=== PATIENT | female | born 1940 | race Caucasian/White ===

== ENCOUNTER 2020-01-02 15:58 | Inpatient (IN) | payer MEDICARE, BC ==
[~2020-01-02] VITALS: Ht 154.9 cm; Wt 85.6 kg
[2020-01-02] VITALS (16 sets, daily range): BP systolic 94–135; BP diastolic 38–64
[2020-01-02 16:31] LABS: BASOPHILS 0.1 % (0-2); EOSINOPHILS 0 % (0-7); HEMATOCRIT 28.4 % (36.0-48.0); HEMOGLOBIN 8.8 g/dL (12-16); IMMATURE GRANULOCYTES 1.7 % (0-5); LYMPHOCYTES 3.6 % (15-50); MCH 30.9 pg (26.0-34.0); MCV 99.6 fL (80.0-100.0); MONOCYTES 4.1 % (2-11); NEUTROPHILS 90.5 % (40-80); PLATELET COUNT 360 10x3/uL (130-400); RBC 2.85 10x6/uL (4.00-5.40); RDW 14.2 % (11.5-14.5); WBC 17.4 10x3/uL (4.8-10.8)
[2020-01-02 16:39] LABS: INR 2.27 (0.85-1.17); PROTIME 24.7 SECONDS (11.6-15.0)
--- NOTE | 2020-01-02 16:40 | NUR ---
PT ARRIVED WITH LEVOPHED DRIP INFUSING, CURRENT BAG NEAR EMPTY AND NEW BAG STARTED TO TITRATE. PT CONVERTED FROM FLIGHT NRB MASK TO BPAP BY RT AT BEDSIDE. PASCUAL CATHETER IN PLACE FROM [facility]
[2020-01-02 16:44] LABS: ANION GAP 12.9 mmol/L (8-16); CALCIUM 7.2 mg/dL (8.5-10.1); CARBON DIOXIDE 23.6 mmol/L (21.0-32.0); CREATININE - SERUM 1.9 mg/dL (0.6-1.3); POTASSIUM - SERUM 4.5 mmol/L (3.5-5.1)
[2020-01-02 16:58] LABS: D-DIMER-QUANTITATIVE 3.9 ug/mLFEU (0.20-0.54)
[2020-01-02 17:01] LABS: ALBUMIN 1.8 g/dL (3.4-5.0); BILIRUBIN - TOTAL 1.66 mg/dL (0.2-1.3); PROTEIN - SERUM 6.6 g/dL (6.4-8.2)
[2020-01-02 17:02] LABS: C-REACTIVE PROTEIN 19.7 mg/dL (0.0-0.9)
[2020-01-02 17:27] LABS: ERYTHROCYTE SEDIMENTATION RATE 94 mm/hr (0-30)
--- NOTE | 2020-01-02 22:10 | NUR ---
PT ARRIVED VIA STREATHER IN STABLE CONDITION. PLACED ON BIPAP IMMEDIATELY FROM NON-REBREATHER AT 60%. VSS. LEVOPHED IS GOING AT 18MCG/MIN, NS AT 30ML/HR IN RIGHT UPPER ARM THAT IS CDI. PT IS ALERT BUT TIRES EASILY WHEN ASKED QUESTIONS. I WILL PERFORM FULL ASSESSMENT AND HISTORY AND DOC IN FLOWSHEET. ORIENTED TO CALL LIGHT. BED IS LOW,SIDE RIASLX2.
[2020-01-03] VITALS (54 sets, daily range): BP systolic 103–137; BP diastolic 40–89; BMI 30.4
--- NOTE | 2020-01-03 01:05 | NUR ---
PT SEEN PULLING BIPAP OFF. ASSISSTED PT WHILE OBSERVING ISOLATION. SHE VOICED"MY MOUTH IS SO DRY". I ASSISTED WITH GLYCERIN LEMON GLICERIN SWAB TO MOISTON MOUTH AND REAPPLIED BIPAP. VSS. LISTED HOB PER REQUEST FOR COMFORT. PT BP IS SLOWLY COMING UP, TRYING TO LOWER DOSE OF LEVOPHED ORDERED. BED IS LEFT LOW,SIDE RAISLX2,CALL LIGHT WITHIN REACH. WILL CONTINUE TO MONITOR
[2020-01-03 04:36] LABS: BASOPHILS 0 % (0-2); EOSINOPHILS 0.1 % (0-7); IMMATURE GRANULOCYTES 1.9 % (0-5); LYMPHOCYTES 4.2 % (15-50); MCH 30.9 pg (26.0-34.0); MCHC 31.5 g/dL (31.0-37.0); MEAN PLATELET VOLUME 9.7 fL (7.4-10.4); NEUTROPHILS 91.8 % (40-80); RDW 14.6 % (11.5-14.5); WBC 13.3 10x3/uL (4.8-10.8)
[2020-01-03 04:40] LABS: HEMOGLOBIN 12.6 g/dL (12-16); PLATELET COUNT 237 10x3/uL (130-400); RBC 4.08 10x6/uL (4.00-5.40)
[2020-01-03 04:58] LABS: APTT 43.8 SECONDS (22.8-39.4); INR 3.07 (0.85-1.17); PROTIME 31.2 SECONDS (11.6-15.0)
[2020-01-03 05:27] LABS: % SATURATION 7 % (15-55); IRON 10 ug/dl (35-150); TOTAL IRON BIND CAPACITY 133 ug/dl (260-445); UNSAT IRON BIND CAPACITY 123 ug/dl (150-375)
[2020-01-03 05:31] LABS: ALBUMIN 1.7 g/dL (3.4-5.0); ANION GAP 15.8 mmol/L (8-16); BILIRUBIN - TOTAL 2.48 mg/dL (0.2-1.3); CALCIUM 7.1 mg/dL (8.5-10.1); CARBON DIOXIDE 24.3 mmol/L (21.0-32.0); CREATININE - SERUM 2.1 mg/dL (0.6-1.3); MAGNESIUM - SERUM 1.7 mg/dL (1.8-2.4); PHOSPHOROUS 4.2 mg/dL (2.5-4.9); POTASSIUM - SERUM 4.1 mmol/L (3.5-5.1); PROTEIN - SERUM 6.3 g/dL (6.4-8.2)
--- NOTE | 2020-01-03 06:00 | NUR ---
BS RECHECK IS 124 AT THIS TIME. PT IS ALERT AND VSS.
[2020-01-03 17:49] LABS: BACTERIA MANY HPF (NONE SEEN); BILIRUBIN NEGATIVE (NEGATIVE); EPITHELIAL CELLS 0-5 /hpf (0-5); KETONE NEGATIVE (NEGATIVE); NITRITE NEGATIVE (NEGATIVE); UROBILINOGEN NORMAL mg/dL (< 2); WHITE CELLS - URINE 0-5 HPF (0-4)
--- NOTE | 2020-01-03 19:00 | NUR ---
PT RESTING IN BED, NO ACUTE DISTRESS NOTED. 12L HFNC. RT UPPER ARM, RT FOREARM, LT FOREARM PIV INFUSING, SEE IV FLOWSHEET. ASSESSMENT COMPLETED, SEE FLOWSHEET.
--- NOTE | 2020-01-03 21:00 | NUR ---
PT OBSERVED HAVING DIFFICULTY WHEN TAKING SIPS OF WATER.
[2020-01-04] VITALS (24 sets, daily range): BP systolic 94–132; BP diastolic 34–69; BMI 22.6
[2020-01-04 04:38] LABS: BASOPHILS 0.1 % (0-2); EOSINOPHILS 0.1 % (0-7); IMMATURE GRANULOCYTES 0.7 % (0-5); LYMPHOCYTES 5.9 % (15-50); MCH 30.4 pg (26.0-34.0); MCHC 30.7 g/dL (31.0-37.0); MCV 99.2 fL (80.0-100.0); MEAN PLATELET VOLUME 9.6 fL (7.4-10.4); MONOCYTES 3.2 % (2-11); PLATELET COUNT 275 10x3/uL (130-400)
[2020-01-04 05:16] LABS: ALBUMIN 1.9 g/dL (3.4-5.0); ANION GAP 12.3 mmol/L (8-16); BILIRUBIN - TOTAL 2.68 mg/dL (0.2-1.3); CALCIUM 7.1 mg/dL (8.5-10.1); CARBON DIOXIDE 27.9 mmol/L (21.0-32.0); CREATININE - SERUM 2.5 mg/dL (0.6-1.3); MAGNESIUM - SERUM 1.8 mg/dL (1.8-2.4); POTASSIUM - SERUM 4.2 mmol/L (3.5-5.1); PROTEIN - SERUM 6.1 g/dL (6.4-8.2); VANCOMYCIN - RANDOM 12.4 ug/mL (10.0-20.0)
[2020-01-04 05:46] LABS: HEMATOCRIT 25.1 % (36.0-48.0); HEMOGLOBIN 7.7 g/dL (12-16); RBC 2.53 10x6/uL (4.00-5.40); WBC 19.7 10x3/uL (4.8-10.8)
--- NOTE | 2020-01-04 11:21 | NUR ---
PT O2 SATS WERE STAYING AROUND 82-86% ON 11LHF. PLACED PT ON BIPAP AT 60%. O2 SAT NOW UP TO 97%. WILL CONTINUE TO MONITOR.
--- NOTE | 2020-01-04 13:51 | NUR ---
SPOKE WITH DR FRANCE REGARDING PT'S VQ SCAN. PT UNABLE TO COME OFF OF BIPAP. CONCERN WITH TUBING REACHING MACHINE. SAID WE COULD WAIT AND TRY TO GET SCAN TOMORROW, TO KEEP PT IN ICU. WILL LET RADIOLOGY AND RESPIRATORY THERAPIST.
--- NOTE | 2020-01-04 14:40 | NUR ---
PT CONTINUES TO PULL BIPAP OFF HER FACE. EXPLAINED THAT SHE NEEDED IT ON TO MAINTAIN HER O2 SATS. PT FORGETFUL AND CONFUSED. ATTEMPTED TO REORIENT TO KEEP MASK ON.
[2020-01-04 17:23] LABS: BASOPHILS 0.1 % (0-2); EOSINOPHILS 0 % (0-7); HEMATOCRIT 24.8 % (36.0-48.0); HEMOGLOBIN 7.7 g/dL (12-16); IMMATURE GRANULOCYTES 0.6 % (0-5); LYMPHOCYTES 2.6 % (15-50); MCH 30.8 pg (26.0-34.0); MCV 99.2 fL (80.0-100.0); MEAN PLATELET VOLUME 9.7 fL (7.4-10.4); MONOCYTES 4.3 % (2-11); NEUTROPHILS 92.4 % (40-80); PLATELET COUNT 248 10x3/uL (130-400); RDW 14.9 % (11.5-14.5); WBC 18.6 10x3/uL (4.8-10.8)
[2020-01-04 17:40] LABS: ANION GAP 13.4 mmol/L (8-16); CARBON DIOXIDE 24.7 mmol/L (21.0-32.0); CREATININE - SERUM 2.7 mg/dL (0.6-1.3); POTASSIUM - SERUM 4.1 mmol/L (3.5-5.1)
[2020-01-04 17:43] LABS: CALCIUM 6.9 mg/dL (8.5-10.1)
--- NOTE | 2020-01-04 22:38 | NUR ---
PAGED DR FRANCE REGARDING ABG'S, NEW ORDERS FOR INTUBATION RECEIVED. ANESTHESIA PAGED.
--- NOTE | 2020-01-04 23:45 | NUR ---
PT INTUBATED SUCCESSFULLY. 8.0 AT LIP LINE MID, 22CM. 400 TV, RR 20, PEEP 6.0, 100% FIO2
[2020-01-05] VITALS (83 sets, daily range): BP systolic 84–125; BP diastolic 42–61
[2020-01-05 06:33] LABS: ALBUMIN 1.7 g/dL (3.4-5.0); ANION GAP 16.3 mmol/L (8-16); BILIRUBIN - TOTAL 3.17 mg/dL (0.2-1.3); CARBON DIOXIDE 22.7 mmol/L (21.0-32.0); CREATININE - SERUM 3.1 mg/dL (0.6-1.3); PHOSPHOROUS 3.6 mg/dL (2.5-4.9); PROTEIN - SERUM 5.9 g/dL (6.4-8.2); VANCOMYCIN - RANDOM 16.8 ug/mL (10.0-20.0)
[2020-01-05 06:55] LABS: HEMOGLOBIN 7.7 g/dL (12-16); MCHC 30.8 g/dL (31.0-37.0); MCV 100.8 fL (80.0-100.0); MEAN PLATELET VOLUME 9.8 fL (7.4-10.4); PLATELET COUNT 227 10x3/uL (130-400); RBC 2.48 10x6/uL (4.00-5.40); RDW 15.5 % (11.5-14.5); WBC 23.8 10x3/uL (4.8-10.8)
[2020-01-05 08:40] LABS: LYMPHOCYTES 3 % (15-50); MONOCYTES 7 % (2-11); NEUTROPHILS 84 % (40-80); PLATELET ESTIMATE NORMAL
--- NOTE | 2020-01-05 11:22 | NUR ---
PATIENT AROUND TO NUCLEAR [facility] FOR VQ SCAN. PATIENTS SPO2 DECREASED TO 60'S WHEN PATIENT WAS MOVED OVER TO TABLE AND WAS FLAT. AFTER TRYING TO GET SPO2 UP WITHOUT SUCCESS PATIENT WAS MOVED BACK OVER TO BED AND HOB ELEVATED SPO2 INCREASED TO 99%.
--- NOTE | 2020-01-05 23:18 | MORECARE ---
CASE MANAGEMENT DISCHARGE SUMMARY PATIENT: MADELYN MC UNIT: [id number] ADM DATE: 01/02/20 AGE: 79 : 40 SEX: F ROOM/BED: D.2313 AUTHOR: PARTHA MCKEON PHYSICIAN: REFERRING PHYSICIAN: IRAIDA MONTOYA MD DATE OF SERVICE: 01/05/20 Discharge Plan Patient Name: MADELYN MC [facility] [facility] 1940 Planned Disposition: Anticipated Discharge Date: Discharge Date: Expected LOS: Initial Reviewer: [email or web address] Initial Review Date: 01/02/2020 Generated: 01/06/20 12:17 am Patient Name: MADELYN MC Page [phone] at 2318 All edits/amendments must be made on the electronic document DICTATION DATE: 01/05/202317 PLAY BACK OPERATOR: PRINCESS 01/05/202317 RPT#: [id number] DC DATE: STATUS: ADM IN [facility] [address] [place] [address] END OF REPORT
[2020-01-06] VITALS (66 sets, daily range): BP systolic 66–103; BP diastolic 43–56
[2020-01-06 06:18] LABS: BASOPHILS 0.2 % (0-2); EOSINOPHILS 0.1 % (0-7); HEMOGLOBIN 8.4 g/dL (12-16); IMMATURE GRANULOCYTES 3.1 % (0-5); LYMPHOCYTES 5.5 % (15-50); MCH 31.3 pg (26.0-34.0); MCHC 32.3 g/dL (31.0-37.0); MEAN PLATELET VOLUME 10.5 fL (7.4-10.4); MONOCYTES 3.2 % (2-11); NEUTROPHILS 87.9 % (40-80); RBC 2.68 10x6/uL (4.00-5.40); WBC 18.8 10x3/uL (4.8-10.8)
[2020-01-06 06:19] LABS: PLATELET COUNT 128 10x3/uL (130-400)
[2020-01-06 06:23] LABS: ALBUMIN 2.1 g/dL (3.4-5.0); ANION GAP 13.3 mmol/L (8-16); BILIRUBIN - TOTAL 5.13 mg/dL (0.2-1.3); CARBON DIOXIDE 23.8 mmol/L (21.0-32.0); CREATININE - SERUM 3.7 mg/dL (0.6-1.3); MAGNESIUM - SERUM 2.2 mg/dL (1.8-2.4); PHOSPHOROUS 3.7 mg/dL (2.5-4.9); POTASSIUM - SERUM 4.1 mmol/L (3.5-5.1); PROTEIN - SERUM 5.6 g/dL (6.4-8.2)
[2020-01-06 06:42] LABS: C-REACTIVE PROTEIN 25.7 mg/dL (0.0-0.9)
[2020-01-06 06:46] LABS: CALCIUM 6.9 mg/dL (8.5-10.1)
--- NOTE | 2020-01-06 07:00 | NUR ---
REC'D REPORT AND RESUMED CARE, ETT TO VENTILATION AND SECURED, 100% FIO2 WITH SAT OF 99%, RT AC PIV WITH FENT AT 100 MCG, AND LEVOPHED AT 3 MCG, LT FA WITH D5NS AT 100, PASCUAL TO GRAVITY WITH DARK DRAINAGE TO BAG, B/L RESTRAINTS IN USE, VSS, AROUSES TO VERBAL STIMULI, DOES NOT FOLLOW COMMANDS. ASSESSMENT COMPLETED PER FLOWSHEET, WILL CONTINUE WITH POC
--- NOTE | 2020-01-06 09:00 | NUR ---
PC TO [facility] RE UPDATE, SPOKEL WITH DR FRANCE HE HAS BEE UNABLE TO REACH [facility]
--- NOTE | 2020-01-06 10:10 | NUR ---
PRBC INITIATED AT 125 CC/HR, 1020 TV CHANGED TO [address] FRANCE ORDER
--- NOTE | 2020-01-06 11:31 | NUR ---
Nutrition follow-up: Pt now intubated, sedated Labs reviewed NPO Wt: 120# OGT->LIWS Recommend starting Pulmocare @ 20 ml/hr with increase to goal rate of 40 ml/hr gravity drip (8 drips/minute-2 drips/15 seconds) RDN following.
--- NOTE | 2020-01-06 12:30 | NUR ---
DR BIRCH AT BEDSIDE, NEW ORDERS GIVEN, LASIX 60 MG GIVEN PER ORDER
[2020-01-07] VITALS (52 sets, daily range): BP systolic 81–101; BP diastolic 41–63; Ht 154.9 cm; Wt 85.6 kg
[2020-01-07 05:06] LABS: INR 1.83 (0.85-1.17)
[2020-01-07 05:16] LABS: ALBUMIN 1.7 g/dL (3.4-5.0); ANION GAP 16.6 mmol/L (8-16); BILIRUBIN - TOTAL 6.71 mg/dL (0.2-1.3); CALCIUM 7.3 mg/dL (8.5-10.1); CARBON DIOXIDE 20.3 mmol/L (21.0-32.0); CREATININE - SERUM 4.3 mg/dL (0.6-1.3); PHOSPHOROUS 2.8 mg/dL (2.5-4.9); POTASSIUM - SERUM 3.9 mmol/L (3.5-5.1); PROTEIN - SERUM 5.9 g/dL (6.4-8.2); VANCOMYCIN - RANDOM 20.9 ug/mL (10.0-20.0)
[2020-01-07 05:36] LABS: BASOPHILS 0.1 % (0-2); EOSINOPHILS 0.4 % (0-7); HEMATOCRIT 29.5 % (36.0-48.0); HEMOGLOBIN 9.7 g/dL (12-16); IMMATURE GRANULOCYTES 0.6 % (0-5); LYMPHOCYTES 7.3 % (15-50); MCH 30.3 pg (26.0-34.0); MCHC 32.9 g/dL (31.0-37.0); MEAN PLATELET VOLUME 10.3 fL (7.4-10.4); MONOCYTES 5.3 % (2-11); NEUTROPHILS 86.3 % (40-80); RDW 16.6 % (11.5-14.5); WBC 15.6 10x3/uL (4.8-10.8)
[2020-01-07 05:47] LABS: MCV 92.2 fL (80.0-100.0); PLATELET COUNT 94 10x3/uL (130-400)
[2020-01-07 06:24] LABS: PLATELET ESTIMATE DECREASED
--- NOTE | 2020-01-07 09:37 | NUR ---
SPOKE WITH PT'S DAUGHTER OJ TO GET CONSENT FOR BRONCHOSCOPY. SHE, ALONG WITH HER SIBLINGS, ASKED IF WE COULD WAIT. THEY ARE MEETING WITH DR HERNANDEZ THIS MORNING AND THEN WILL CALL BACK AND LET US KNOW IF THEY WANT THEIR MOM TO HAVE BRONCH.
--- NOTE | 2020-01-07 10:52 | NUR ---
DR HERNANDEZ MET WITH FAMILY. PT TO BE DNR. FAMILY DID GIVE CONSENT TO DO BRONCHOSCOPY TODAY.
--- NOTE | 2020-01-07 11:21 | NUR ---
DR FRANCE DOING BRONCHOSCOPY.
[2020-01-08] VITALS (12 sets, daily range): BP systolic 90–103; BP diastolic 40–46
[2020-01-08 03:40] LABS: BASOPHILS 0.3 % (0-2); HEMATOCRIT 26.8 % (36.0-48.0); IMMATURE GRANULOCYTES 0.7 % (0-5); MCH 30.6 pg (26.0-34.0); MCHC 33.6 g/dL (31.0-37.0); MCV 91.2 fL (80.0-100.0); MEAN PLATELET VOLUME 10.9 fL (7.4-10.4); MONOCYTES 3.9 % (2-11); NEUTROPHILS 87.1 % (40-80); PLATELET COUNT 85 10x3/uL (130-400); RBC 2.94 10x6/uL (4.00-5.40); RDW 15.9 % (11.5-14.5); WBC 18.7 10x3/uL (4.8-10.8)
[2020-01-08 03:54] LABS: ALBUMIN 1.3 g/dL (3.4-5.0); ANION GAP 16.1 mmol/L (8-16); BILIRUBIN - TOTAL 7.55 mg/dL (0.2-1.3); CALCIUM 7.3 mg/dL (8.5-10.1); CARBON DIOXIDE 20.2 mmol/L (21.0-32.0); CREATININE - SERUM 5.2 mg/dL (0.6-1.3); MAGNESIUM - SERUM 2.1 mg/dL (1.8-2.4); PHOSPHOROUS 2.8 mg/dL (2.5-4.9); POTASSIUM - SERUM 4.3 mmol/L (3.5-5.1); PROTEIN - SERUM 5.6 g/dL (6.4-8.2); VANCOMYCIN - RANDOM 22.3 ug/mL (10.0-20.0)
--- NOTE | 2020-01-08 09:41 | NUR ---
Nutrition follow-up: Pt intubated NPO s/p bronchoscopy 01/06 Wt: 188#; wt yesterday was 120#? Recommend starting Pulmocare @ 20 ml/hr with increase to goal rate of 40 ml/hr 8 drips/minuted via gravity RDN following.
--- NOTE | 2020-01-08 12:17 | NUR ---
Dr. Carlisle spoke with family. Plan is to place pt on hospice.
--- NOTE | 2020-01-08 13:27 | NUR ---
10MG MORPHINE IV GIVEN PER ORDERS.
--- NOTE | 2020-01-08 14:46 | NUR ---
Pt extubated at 1405. Placed on 2L O2 via nc. Restraints discontinued. Asystole noted at 1421. Dr. Carlisle notified. Time of 1427. Family notified. Daughter came in to view body.
--- NOTE | 2020-01-08 15:52 | MORECARE ---
CASE MANAGEMENT DISCHARGE SUMMARY PATIENT: MADELYN MC UNIT: [id number] ADM DATE: 01/02/20 AGE: 79 : 40 SEX: F ROOM/BED: D.2305 AUTHOR: PARTHA MCKEON PHYSICIAN: REFERRING PHYSICIAN: IRAIDA MONTOYA MD DATE OF SERVICE: 01/08/20 Discharge Plan Patient Name: MADELYN MC [facility] [facility] 1940 Planned Disposition: Anticipated Discharge Date: Discharge Date: Expected LOS: Initial Reviewer: [email or web address] Initial Review Date: 01/02/2020 Generated: 01/08/20 4:51 pm Last DP export: 01/05/20 10:18 p Patient Name: MADELYN MC Page [id number] at 1552 All edits/amendments must be made on the electronic document DICTATION DATE: 01/08/20 155 [employer]OYEE BENEFITS DIRECTOR: PRINCESS 01/08/20 1551 RPT#: [id number] DC DATE: STATUS: ADM IN [facility] [address] [place] [address] END OF REPORT
--- NOTE | 2020-01-08 15:56 | NUR ---
[place] home here to olive picker body. Piv's discontinued, delarosa catheter dc'd. No personal belongings.
[2020-01-08 17:09] LABS: ACID FAST SMEAR Negative (()); AFB SPECIMEN PROCESSING Concentration (())
--- NOTE | 2020-01-08 20:35 | MORECARE ---
CASE MANAGEMENT DISCHARGE SUMMARY PATIENT: MADELYN MC UNIT: [id number] ADM DATE: 01/02/20 AGE: 79 : 40 SEX: F ROOM/BED: D.2305 AUTHOR: PARTHA MCKEON PHYSICIAN: REFERRING PHYSICIAN: IRAIDA MONTOYA MD DATE OF SERVICE: 01/08/20 Discharge Plan Patient Name: MADELYN MC Facility: [facility]:[place] : 1940 Planned Disposition: Anticipated Discharge Date: Discharge Date: 01/08/2020 Expected LOS: Initial Reviewer: [email or web address] Initial Review Date: 01/02/2020 Generated: 01/08/20 9:34 pm DCPIA - Discharge Planning Initial Assessment Updated by [id number]: Rosa Ibarra on 01/08/20 8:35 pm * Is the patient Alert and Oriented? No * How many steps to enter\exit or inside your home? * PCP [facility] Doming[facility] * Pharmacy [facility] * Preadmission Environment Home with Family * ADLs Partial Dependent * Partial ADLs (Assistance needed) Ambulation Bathing Dressing Eating Medication Management Toileting Transfers * Other Equipment W/C , WALKER * List name and contact numbers for known caregivers / representatives who currently or will assist patient after discharge: OJ MC - DAUGHTER - [phone] * Verbal permission to speak to the caregivers and representatives has been obtained from the patient. Yes * Community resources currently utilized None * Additional services required to return to the preadmission environment? No * Can the patient safely return to the preadmission environment? Yes * Has this patient been hospitalized within the prior 30 days at any hospital? No Last DP export: 01/08/20 2:52 p Patient Name: MADELYN MC Page [phone] at 2034 All edits/amendments must be made on the electronic document DICTATION DATE: 01/08/202033 INFORMATION OFFICER: PRINCESS 01/08/202033 RPT#: [id number] DC DATE:01/08/20 STATUS: DIS IN [facility] [address] [place] [address] END OF REPORT
--- NOTE | 2020-01-08 20:41 | MORECARE ---
CASE MANAGEMENT DISCHARGE SUMMARY PATIENT: MADELYN MC UNIT: [id number] ADM DATE: 01/02/20 AGE: 79 : 40 SEX: F ROOM/BED: D.2305 AUTHOR: MIKE,DOC PHYSICIAN: REFERRING PHYSICIAN: IRAIDA MONTOYA MD DATE OF SERVICE: 01/08/20 Discharge Plan Patient Name: MADELYN MC Facility: [facility]:[place] : 1940 Planned Disposition: Anticipated Discharge Date: Discharge Date: 01/08/2020 Expected LOS: Initial Reviewer: [email or web address] Initial Review Date: 01/02/2020 Generated: 01/08/20 9:41 pm Comments DCP- Discharge Planning Updated by [email or web address]: Rosa Ibarra on 01/08/20 7:[address] LATE ENTRY 01/06/20 Patient Name: MADELYN MC Admission Status: ER Accout number: [id number] Admission Date: 01-02-2020 : 1940 Admission Diagnosis:SEPSIS, UNSPECIFIED ORGANISM Attending: IRAIDA MONTOYA Current LOS: 6 Anticipated DC Date: Planned Disposition: Primary Insurance: MEDICARE A & B Discharge Planning Comments: CM called and spoke with patient's daughter Sangita to complete initial dc planning assessment. CM educated patient on the CM role and verbal consent given by patient to complete assessment. Patient lives at home with family. Patient is partially independent. At discharge patient plans to return home and feels this is a safe discharge. CM discussed availability of home health, rehab services, and medical equipment. Patient will have family to transport home. Patient denied known discharge needs at this time. Sangita expressed concerns regarding her mother and would like a meeting with physician. CM contacted Dr. Carlisle and he will meet with family at 10 am. CM will continue to follow and will assist as needed with dc plans/needs. Review Analyst: Rosa Ibarra DCPIA - Discharge Planning Initial Assessment Updated by [email or web address]: Rosa Ibarra on 01/08/20 8:35 pm * Is the patient Alert and Oriented? No * How many steps to enter\exit or inside your home? * PCP [facility] Dominguez [place] * Pharmacy [facility] * Preadmission Environment Home with Family * ADLs Partial Dependent * Partial ADLs (Assistance needed) Ambulation Bathing Dressing Eating Medication Management Toileting Transfers * Other Equipment W/C , WALKER * List name and contact numbers for known caregivers / representatives who currently or will assist patient after discharge: SANGITA MC - DAUGHTER - [phone] * Verbal permission to speak to the caregivers and representatives has been obtained from the patient. Yes * Community resources currently utilized None * Additional services required to return to the preadmission environment? No * Can the patient safely return to the preadmission environment? Yes * Has this patient been hospitalized within the prior 30 days at any hospital? No Last DP export: 01/08/20 7:35 p Patient Name: MADELYN MC Page [id number] at 204 All edits/amendments must be made on the electronic document DICTATION DATE: 01/08/202040 JOY OPERATOR HELPER: PRINCESS 01/08/202040 RPT#: [id number] DC DATE:01/08/20 STATUS: DIS IN [facility] [address] [place] [address] END OF REPORT
== END 2020-01-08 16:15 | DRG 871 ==
LOC: D.ER 15:58 → D.EDHOLD 16:27 → D.ICU 16:27
PROVIDERS: Emergency Medicine; Family Medicine; Internal Medicine; Internal Medicine Nephrology; Internal Medicine Pulmonary Disease; ADMIT Family Medicine; ATTEND Family Medicine
PROC: 5A1945Z Respiratory Ventilation, 24-96 Consecutive Hours (ICD-10-PCS; principal; 2020-01-04)
PROC: 0BH17EZ Insertion of Endotracheal Airway into Trachea, Via Natural or Artificial Opening (ICD-10-PCS; 2020-01-04)
PROC: 0B9F8ZX Drainage of Right Lower Lung Lobe, Via Natural or Artificial Opening Endoscopic, Diagnostic (ICD-10-PCS; 2020-01-07)
PROC: 0B9G8ZX Drainage of Left Upper Lung Lobe, Via Natural or Artificial Opening Endoscopic, Diagnostic (ICD-10-PCS; 2020-01-07)
DX: A41.9 Sepsis, unspecified organism (principal); R65.21 Severe sepsis with septic shock; J18.9 Pneumonia, unspecified organism; J96.02 Acute respiratory failure with hypercapnia; J96.01 Acute respiratory failure with hypoxia; N17.0 Acute kidney failure with tubular necrosis; K72.00 Acute and subacute hepatic failure without coma; E87.2 Acidosis; J90 Pleural effusion, not elsewhere classified; D68.9 Coagulation defect, unspecified; E44.0 Moderate protein-calorie malnutrition; N39.0 Urinary tract infection, site not specified; I10 Essential (primary) hypertension; D72.829 Elevated white blood cell count, unspecified; E86.0 Dehydration; I95.9 Hypotension, unspecified; D53.9 Nutritional anemia, unspecified; I25.10 Atherosclerotic heart disease of native coronary artery without angina pectoris; R79.89 Other specified abnormal findings of blood chemistry; D50.9 Iron deficiency anemia, unspecified; E88.09 Other disorders of plasma-protein metabolism, not elsewhere classified; R74.0 Nonspecific elevation of levels of transaminase and lactic acid dehydrogenase [LDH]; E16.2 Hypoglycemia, unspecified